=== PATIENT | male | born 2000 | race Caucasian/White ===

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

== ENCOUNTER 2020-05-16 22:07 | Emergency (ER) | payer BC ==
[~2020-05-16] VITALS: Ht 177 cm; Wt 63.0 kg
[~2020-05-16 22:07] MED LIST: ACHD5005 PO
[2020-05-16] MEDS ORDERED: morphine INJ 10 MG/ML 1ML (SYR OR VIAL) IVP STA (22:14)
[2020-05-16 22:33] LABS: BASOPHILS # (AUTO) 0.1 10^3/uL (0.0-0.1); BASOPHILS % (AUTO) 1 % (0-10); EOSINOPHILS # (AUTO) 0.2 10^3/uL (0.0-0.3); EOSINOPHILS % (AUTO) 2 % (0-10); HEMATOCRIT 41 % (40-54); HEMOGLOBIN 13.9 g/dL (13.3-17.7); LYMPHOCYTES % (AUTO) 53 % (12-44); MEAN CORPUSCULAR HEMOGLOBIN 31 pg (25-34); MEAN CORPUSCULAR HGB CONC 34 g/dL (32-36); MEAN CORPUSCULAR VOLUME 92 fL (80-99); MEAN PLATELET VOLUME 11.9 fL (9.0-12.2); MONOCYTES # (AUTO) 0.7 10^3/uL (0.0-1.0); MONOCYTES % (AUTO) 7 % (0-12); NEUTROPHILS # (AUTO) 3.4 10^3/uL (1.8-7.8); NEUTROPHILS % (AUTO) 37 % (42-75); PLATELET COUNT 167 10^3/uL (130-400); WHITE BLOOD COUNT 9.4 10^3/uL (4.3-11.0)
[2020-05-16 22:38] LABS: ALBUMIN 4.6 GM/DL (3.2-4.5); CHLORIDE 104 MMOL/L (98-107); POTASSIUM 3.4 MMOL/L (3.6-5.0); SODIUM 138 MMOL/L (135-145)
[2020-05-16 22:41] LABS: GLUCOSE 115 MG/DL (70-105); TOTAL PROTEIN 7.3 GM/DL (6.4-8.2)
[2020-05-16 22:42] LABS: CARBON DIOXIDE 17 MMOL/L (21-32)
[2020-05-16 22:43] LABS: BILIRUBIN,TOTAL 0.7 MG/DL (0.1-1.0)
[2020-05-16 22:44] LABS: ALKALINE PHOSPHATASE 98 U/L (40-136)
[2020-05-16 22:45] LABS: CREATININE SERUM 1.08 MG/DL (0.60-1.30); GFR ESTIMATED > 60
[2020-05-16 22:46] LABS: BUN/CREATININE RATIO 12
[2020-05-16 22:47] LABS: ALANINE AMINOTRANSFERASE 13 U/L (0-55)
[2020-05-16 22:48] LABS: MAGNESIUM 2.2 MG/DL (1.6-2.4)
[2020-05-16 23:08] LABS: TSH (THYROID ANALYZER) 1.88 UIU/ML (0.35-4.94)
[2020-05-16] MEDS ORDERED: fentaNYL INJECTION 100 MCG/2 ML AMP IVP ONE (23:30)
[2020-05-16] MEDS ORDERED: ETOMIDATE IV SOLN 20 MG/10 ML VIAL IV ONE (23:30)
[2020-05-17] MEDS ORDERED: NS IV 1000 ML 1,000 ML ONE (01:18)
--- NOTE | 2020-05-17 01:33 | ED Syncope ---
General Chief Complaint: Trauma EMS/Air Arrival Activat Stated Complaint: SEIZURE/POSSIBLE DISLOCATED SHOULDER Nursing Triage Note: Patient presented to the ER via EMS secondary to what patients co workers felt was a seizure. Upon EMS arrival staff advised that the patient was standing by one of the machines when he fell against the machine with his left shoulder and then fell to the floor and had what staff believed to be a seizure. The patient states no previous hx of seizures. Source of Information: Patient, EMS, Family Exam Limitations: No Limitations History of Present Illness Date Seen by Provider: May 16, 2020 Time Seen by Provider: 22:15 Initial Comments This 20 -year-old young man presents to the emergency room via EMS after they were called to his place of employment for suspected seizure and shoulder injury. 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 For some reason coworkers thought he had a seizure but there were no convulsions described. Patient has a history of recent left shoulder dislocation 1 to 2 months ago. He now has disfigurement of that left shoulder and appears to have dislocated it again. He denies any history of seizure activity. He denies any drug or alcohol use. It was later revealed by his father that he has been working extremely long hours while going to school. He had not eaten anything all day prior to the event. He reports 1 prior episode of syncope when he was a child. That occurred in the shower. He is alert and oriented now. He denies any other injury. He denies any recent illness. Location Injury Occurred: patients employment Allergies and Home Medications Allergies Coded Allergies: No Known Drug Allergies (Unverified , 12/18/19) Home Medications Hydrocodone/Acetaminophen 1 Each Tablet, 1 EACH PO Q4-6 HOURS PRN for PAIN Prescribed by: BRANDO GALVEZ on 12/18/19 7179 Patient Home Medication List Home Medication List Reviewed: Yes Review of Systems Constitutional: no symptoms reported EENTM: no symptoms reported Respiratory: no symptoms reported Cardiovascular: see HPI Gastrointestinal: no symptoms reported Genitourinary: no symptoms reported Musculoskeletal: see HPI Skin: no symptoms reported Psychiatric/Neurological: See HPI Past Vigykhu-Zbsqbz-Tpsfyj Hx Past Med/Social Hx: Reviewed Nursing Past Med/Soc Hx Patient Social History Alcohol Use: Denies Use Recreational Drug Use: Yes (THC) Type Used: Electronic/Vapor Recent Foreign Travel: No Contact w/Someone Who Travel: No Recent Infectious Disease Expo: No Recent Hopitalizations: No Immunizations Up To Date PED Vaccines UTD: Yes Seasonal Allergies Seasonal Allergies: No Past Medical History Surgeries: No Respiratory: No Cardiac: Yes Syncope (One episode as a child) Neurological: No Genitourinary: No Gastrointestinal: No Musculoskeletal: No Endocrine: No HEENT: No Cancer: No Psychosocial: No Integumentary: No Blood Disorders: No Physical Exam Vital Signs Vital Signs - First Documented Capillary Refill : Less Than 3 Seconds Height, Weight, BMI Height: '" Weight: lbs. oz. kg; 20.00 BMI Method: General Appearance: No Apparent Distress, WD/WN, Thin HEENT: PERRL/EOMI, Normal ENT Inspection Neck: Full Range of Motion, Normal Inspection, Non Tender Cardiovascular: Regular Rate, Rhythm, No Edema, No Murmur Respiratory: Lungs Clear, Normal Breath Sounds, No Accessory Muscle Use, No Respiratory Distress Gastrointestinal: Non Tender, Soft Extremities: Other (Apparent anterior dislocation of the left shoulder with tenderness. Distal exam is unremarkable with normal movement, sensation, and radial pulse) Neurologic/Psychiatric: Alert, Oriented x3, No Motor/Sensory Deficits, Normal Mood/Affect, behavioral modification assistant II-XII Norm as Tested Cranial Nerves: Normal Hearing, Normal Speech, PERRL Motor/Sensory: No Motor Deficit, No Sensory Deficit Skin: Normal Color, Warm/Dry Procedures/Interventions Procedure: closed reduction of left shoulder dislocation Patient Education: Explained Benefits, Explained Risks, Pt. Ack. Understanding Agreement on procedure with pt: Yes Breath Sounds per Auscultation: Clear Heart Sounds per Auscultation: Regular Airway Exam: Mouth opens >2 fingers Sedation Adminstration Time: 00:22 Total Time spent in CS 7 min Patient was treated with fentanyl for pain prior to conscious sedation. After informed consent conscious sedation was provided with etomidate 10 mg IV. Patient was supervised by respiratory therapy during the procedure. The Legg Maneuver was then used to reduce the shoulder without Difficulty or complication. Patient woke a short time later and recovered without complication. Re-examination Time: 00:45 Re-examination Reduce pain and tenderness. 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 Normal radial pulse. Normal sensation. Progress/Results/Core Measures Results/Orders Lab Results Laboratory Tests Test 05/16/20 22:17 Range/Units White Blood Count 9.4 4.3-11.0 10^3/uL Red Blood Count 4.43 4.30-5.52 10^6/uL Hemoglobin 13.9 13.3-17.7 g/dL Hematocrit 41 40-54 % Mean Corpuscular Volume 92 80-99 fL Mean Corpuscular Hemoglobin 31 25-34 pg Mean Corpuscular Hemoglobin Concent 34 32-36 g/dL Red Cell Distribution Width 11.6 10.0-14.5 % Platelet Count 167 130-400 10^3/uL Mean Platelet Volume 11.9 9.0-12.2 fL Immature Granulocyte % (Auto) 0 % Neutrophils (%) (Auto) 37 L 42-75 % Lymphocytes (%) (Auto) 53 H 12-44 % Monocytes (%) (Auto) 7 0-12 % Eosinophils (%) (Auto) 2 0-10 % Basophils (%) (Auto) 1 0-10 % Neutrophils # (Auto) 3.4 1.8-7.8 10^3/uL Lymphocytes # (Auto) 5.0 H 1.0-4.0 10^3/uL Monocytes # (Auto) 0.7 0.0-1.0 10^3/uL Eosinophils # (Auto) 0.2 0.0-0.3 10^3/uL Basophils # (Auto) 0.1 0.0-0.1 10^3/uL Immature Granulocyte # (Auto) 0.0 0.0-0.1 10^3/uL Sodium Level 138 135-145 MMOL/L Potassium Level 3.4 L 3.6-5.0 MMOL/L Chloride Level 104 98-107 MMOL/L Carbon Dioxide Level 17 L 21-32 MMOL/L Anion Gap 17 H 5-14 MMOL/L Blood Urea Nitrogen 13 7-18 MG/DL Creatinine 1.08 0.60-1.30 MG/DL Estimat Glomerular Filtration Rate > 60 BUN/Creatinine Ratio 12 Glucose Level 115 H 70-105 MG/DL Calcium Level 9.0 8.5-10.1 MG/DL Corrected Calcium 8.5-10.1 MG/DL Magnesium Level 2.2 1.6-2.4 MG/DL Total Bilirubin 0.7 0.1-1.0 MG/DL Aspartate Amino Transf (AST/SGOT) 17 5-34 U/L Alanine Aminotransferase (ALT/SGPT) 13 0-55 U/L Alkaline Phosphatase 98 40-136 U/L Troponin I < 0.028 <0.028 NG/ML Total Protein 7.3 6.4-8.2 GM/DL Albumin 4.6 H 3.2-4.5 GM/DL TSH Todd Testing 1.88 0.35-4.94 UIU/ML Serum Alcohol < 10 <10 MG/DL My Orders Orders - ABDOULAYE VEGA MD Morphine Injection (Morphine Injection (05/16/20 22:14) Shoulder, Left, 3 Views (05/16/20 22:22) Alcohol (05/16/20 22:22) Cbc With Automated Diff (05/16/20:22) Comprehensive Metabolic Panel (05/16/20 22:22) Magnesium (05/16/20 22:22) Thyroid Analyzer (05/16/20 22:22) Chest 1 View, Ap/Pa Only (05/16/20 22:22) Ct Head Wo (05/16/20 22:22) Troponin I (05/16/20 22:29) Etomidate Injection (Amidate Injection) (05/16/20 23:30) Fentanyl Injection (Sublimaze Injection (05/16/20 23:30) Shoulder, Left, 2 Views (05/17/20 00:13) Ns Iv 1000 Ml (Sodium Chloride 0.9%) (05/17/20 01:18) Medications Given in ED Vital Signs/I&O 05/16/20 05/16/20 05/17/20 05/17/20 22:28 22:28 00:22 00:22 Temp 35.1 35.1 36.5 Pulse 85 96 63 Resp 14 14 18 B/P (MAP) 123/75 (91) 121/70 (87) 129/78 Pulse Ox 98 98 100 O2 Delivery Room Air Room Air Nasal Cannula Nasal Cannula O2 Flow Rate 2.00 05/17/20 01:57 Pulse 75 Resp 12 B/P (MAP) 130/82 Pulse Ox 100 O2 Delivery Room Air Blood Pressure Mean: 91 Progress Progress Note : Progress Note Work-up for syncope was unremarkable. Patient was treated with fentanyl and morphine for pain. I attempted to reduce the arm with pain control only without sedation using the Legg Maneuver. This was not successful. Conscious sedation with etomidate 10 mg was then used and reduction was easily performed. Arm was placed in a sling. Patient was instructed to follow-up with an orthopedist. I discussed causes of possible syncope with his father and the patient. Patient had worked a long day and not had anything to eat. This probably played a role. I have advised him not to drive or work again until he receives further evaluation. His father is his primary care provider and will discuss these issues with him further. Patient was ultimately discharged into his father's care. Diagnostic Imaging Diagonstic Imaging: Xray Plain Films/CT/US/NM/MRI: chest Comments Chest x-ray viewed by me. Report not yet available. No acute abnormalities appreciated. Diagonstic Imaging: CT Plain Films/CT/US/NM/MRI: head Comments CT head stat rad report reviewed. No acute injuries identified.No masses or other abnormalities appreciated. Diagonstic Imaging: Xray Plain Films/CT/US/NM/MRI: other (Left shoulder) Comments Left shoulder x-ray viewed by me. Report not yet available. There is a left anterior shoulder dislocation without fracture. Hill-Sachs deformity present. Diagonstic Imaging: Xray Plain Films/CT/US/NM/MRI: other (Left shoulder) Comments Postreduction left shoulder x-rays viewed by me. Report not yet available. Reduction was successful. Hill-Sachs deformity again noted. No fractures appreciated. Departure Impression Primary Impression: Syncope and collapse Additional Impression: Recurrent dislocation, left shoulder Disposition: 01 HOME, SELF-CARE Condition: Improved Departure-Patient Inst. Decision time for Depature: 01:31 Referrals: BERNARD ANDERSON DO (PCP/Family) Primary Care Physician Patient Instructions: Shoulder Dislocation, Syncope (Fainting) Add. Discharge Instructions: Follow-up with an orthopedic provider of your choice as soon as possible. In the meantime, keep the left arm in the sling is much as possible. You may adjust the sling straps to provide appropriate support. Icing in 20-minute intervals as well as Tylenol and/or ibuprofen may be helpful in reducing pain. Drink plenty of clear liquids, get plenty of rest, and eat a well-balanced diet. Do not return to driving or work until you discuss your situation further with your primary care provider. Return to the emergency room if you have worsening symptoms or recurrent shoulder dislocation. All discharge instructions reviewed with patient and/or family. Voiced understanding. ABDOULAYE VEGA MD May 17, 2020 01:32
[2020-05-17 01:57] VITALS: BP 130/82
--- NOTE | 2020-05-17 06:26 | Diagnostic Imaging Report ---
INDICATION: Dislocation, post reduction. TECHNIQUE: 2 views of the left shoulder CORRELATION STUDY: 05/16/2020 FINDINGS: There appears to be satisfactory reduction previously noted left shoulder dislocation. Defect in superolateral humeral head is again demonstrated. The visualized soft tissues are unremarkable. IMPRESSION: 1. Satisfactory reduction previously noted left shoulder dislocation. 2. Findings compatible with a Hill-Sachs fracture deformity. Likely nonacute. Dictated by: Dictated on workstation # [id number]
--- NOTE | 2020-05-17 07:01 | Diagnostic Imaging Report ---
PROCEDURE: CT head without contrast. TECHNIQUE: Multiple contiguous axial images were obtained through the brain without the use of intravenous contrast. Auto Exposure Controls were utilized during the CT exam to meet ALARA standards for radiation dose reduction. INDICATION: Seizure with fall CORRELATION: None FINDINGS: Examination mildly compromised by motion artifact. There is no midline shift or mass effect. The ventricles and sulci are unremarkable. No evidence for acute intracranial hemorrhage, abnormal extra-axial fluid collections or cerebral edema is present. The basilar cisterns are unremarkable. The bony calvarium is intact. Probable cysts or polyps bilateral maxillary sinuses. IMPRESSION: Negative appearing noncontrast CT of the head. Initial report was provided by [facility]. Dictated by: Dictated on workstation # [id number]
--- NOTE | 2020-05-17 07:12 | Diagnostic Imaging Report ---
EXAMINATION: Left shoulder radiographs, 3 views. COMPARISON: December 19, 2019. HISTORY: 20-year-old male, left shoulder pain. Seizure. Fall. FINDINGS: The humeral head is anteriorly dislocated. There does appear to be a Hill-Sachs deformity. There is no radiographically apparent fracture of the glenoid. The acromioclavicular joint is normally aligned. There are no acromioclavicular degenerative changes. IMPRESSION: 1. Anterior glenohumeral joint dislocation. 2. Probable Hill-Sachs deformity. Dictated by: Dictated on workstation # [id number]
--- NOTE | 2020-05-17 07:13 | Diagnostic Imaging Report ---
EXAMINATION: Chest radiograph, portable AP view. DATE: 05/16/2020 11:00 PM INDICATION: 20-year-old male, fall, syncope. COMPARISON: None. FINDINGS: There is a left glenohumeral joint dislocation. Heart size and mediastinal contours are unremarkable. There is no identified pneumothorax. There is no large pleural effusion. There is no identified focal airspace consolidation. IMPRESSION: 1. No identified acute cardiopulmonary abnormality. 2. Left glenohumeral joint dislocation. Dictated by: Dictated on workstation # [id number]
== END 2020-05-17 01:58 | disposition home or self-care (01) ==
LOC: EDUNIT# 22:07 → ER 22:09
DX: R55 Syncope and collapse (principal); M24.412 Recurrent dislocation, left shoulder
CPT/HCPCS: 70450; 71045; 73030 ×2; 80053; 83735; 84443; 84484; 85025; 93041; 99285; A4565; G0480; 36415; 80320; 93005

== ENCOUNTER 2020-08-15 22:23 | Emergency (ER) | payer BC ==
[~2020-08-15] VITALS: Ht 177.8 cm; Wt 63.5 kg
[2020-08-15] MEDS ORDERED: KETOROLAC 30 MG/ML VIAL IVP STA (22:45)
[2020-08-15] MEDS ORDERED: MIDAZOLAM 5 MG/5 ML (VERSED) VIAL ONE ×2 (22:55→23:18)
[2020-08-15] MEDS ORDERED: fentaNYL INJECTION 100 MCG/2 ML AMP IVP ONE (23:00)
[2020-08-15] MEDS ORDERED: LACTATED RINGERS 1,000 ML IV ONE (23:00)
[2020-08-15] MEDS: MIDAZOLAM 10 MG/2 ML (VERSED) VIAL IVP PRN ×3 (23:16→23:24)
[2020-08-15] MEDS ORDERED: KETAMINE/NaCl 50 MG/5 ML SYRINGE (ED ONLY) ONE (23:23)
--- NOTE | 2020-08-15 23:41 | ED Upper Extremity ---
General Chief Complaint: Conscious Sedation Stated Complaint: L SHOULDER INJ / POSS DISLOCATION Nursing Triage Note: LEFT SHOUDLER PAIN/POSSIBLE DISLOCATION. DENIES INJURY. Nursing Sepsis Screen: No Definite Risk Source: patient History of Present Illness Date Seen by Provider: Aug 15, 2020 Time Seen by Provider: 22:34 Initial Comments PT ARRIVES VIA POV FROM HOME--ROOM MATE DROVE HIM HERE PT STATES HE WAS ASLEEP AND WOKE UP WITH LEFT SHOULDER PAIN AND SUSPECTED DISLOCATION STATES HE WENT TO SLEEP ON HIS LEFT SIDE WITH HIS LEFT ARM UNDER THE PILLOW NO PARESTHESIAS OR MOTOR DEFICITS THIS IS 3RD TIME IT HAS HAPPENED. FIRST TIME WAS 12/18/19--EXACT SAME SCENARIO. SECOND TIME WAS IN MAY AND IT OCCURRED AT WORK WITH SYNCOPAL EPISODE. STATES HE SAW A SPECIALIST AFTER ER VISITS AND WAS TOLD THAT IT HE CONTINUED TO HAVE THIS PROBLEM, HE MAY NEED SURGERY. PT'S FATHER IS PHYSICIAN IN [place], [place] Allergies and Home Medications Allergies Coded Allergies: No Known Drug Allergies (Unverified , 12/18/19) Home Medications Hydrocodone/Acetaminophen 1 Each Tablet, 1 EACH PO Q4-6 HOURS PRN for PAIN Prescribed by: BRANDO GALVEZ on 12/18/19 2337 Hydrocodone/Acetaminophen 1 Each Tablet, 1 EACH PO Q4-6 HOURS PRN for PAIN Prescribed by: BRANDO GALVEZ on 08/15/20 2344 Patient Home Medication List Home Medication List Reviewed: Yes Review of Systems Constitutional: no symptoms reported Musculoskeletal: see HPI Skin: no symptoms reported Psychiatric/Neurological: No Symptoms Reported Past Krtbmww-Qctkcr-Msuuho Hx Past Med/Social Hx: Reviewed and Corrections made Patient Social History Alcohol Use: Denies Use Drug of Choice: CANNIBUS Smoking Status: Current Someday Smoker Type Used: Electronic/Vapor Recent Infectious Disease Expo: No Recent Hopitalizations: No Immunizations Up To Date Tetanus Booster (TDap): Unknown PED Vaccines UTD: Yes Seasonal Allergies Seasonal Allergies: No Past Medical History Surgeries: No Respiratory: No Cardiac: Yes Syncope Neurological: No Genitourinary: No Gastrointestinal: No Musculoskeletal: Yes (LEFT SHOULDER DISLOCATIONS) Endocrine: No HEENT: No Cancer: No Psychosocial: No Integumentary: No Blood Disorders: No Physical Exam Vital Signs Vital Signs - First Documented 08/15/20 22:29 Temp 36.6 Pulse 78 Resp 16 B/P (MAP) 127/67 (87) Pulse Ox 98 O2 Delivery Room Air Capillary Refill : Less Than 3 Seconds Height, Weight, BMI Height: '" Weight: lbs. oz. kg; 20.00 BMI Method: General Appearance: WD/WN, no apparent distress HEENT: other (MINOR ABRASION TO RIGHT BUDDHIST AREA) Neck: non-tender, full range of motion Cardiovascular: regular rate, rhythm, no murmur Respiratory: chest non-tender, normal breath sounds Gastrointestinal: non tender, soft Back: normal inspection Shoulder: bone tenderness, deformity (AC DROP OFF AND ANTERIOR FULLNESS. ), limited ROM, pain, soft tissue tenderness Elbow/Forearm: normal inspection Wrist: Yes normal inspection Hand: normal inspection Neurologic/Tendon: normal sensation, normal motor functions, normal tendon functions Neurologic/Psychiatric: life consultant II-XII nml as tested, no motor/sensory deficits, alert, normal mood/affect, oriented x 3 Skin: normal color, warm/dry Procedures/Interventions Procedure: SHOULDER REDUCTION Patient Education: Explained Benefits, Explained Risks, Pt. Ack. Understanding Agreement on procedure with pt: Yes Breath Sounds per Auscultation: Clear Heart Sounds per Auscultation: Regular Airway Exam: Mouth opens >2 fingers Sedation Adminstration Time: 0022 Re-examination Time: 0045 Splinting and Joint Reduction : Pre-Proc Neuro Vasc Exam: normal Post-Proc Neuro Vasc Exam: normal Joint Reduction Site: shoulder (L) Pre-Procedure NV Exam: Yes post joint reduction film: joint reduced Immobilizers: Medium Shoulder Progress/Results/Core Measures Results/Orders My Orders Orders - BRANDO GALVEZ DO Shoulder, Left, 3 Views (08/15/20 22:37) Ed Iv/Invasive Line Start (08/15/20 22:45) Ketorolac Injection (Toradol Injection) (08/15/20 22:45) Shoulder, Left, 1 View (08/15/20 ) Midazolam Injection (Versed Injection) (08/15/20 23:00) Fentanyl Injection (Sublimaze Injection (08/15/20 23:00) Ed Iv/Invasive Line Start (08/15/20 22:56) Lactated Ringers (Lr 1000 Ml Iv Solution (08/15/20 23:00) Midazolam Injection (Versed Injection) (08/15/20 22:55) Midazolam Injection (Versed Injection) (08/15/20 23:18) Ketamine Syringe (Ed Only) (Ketamine Syr (08/15/20 23:23) Medications Given in ED Current Medications Medications Dose Ordered Sig/Mega Route Start Time Stop Time Status Last Admin Dose Admin Fentanyl Citrate 50 mcg PRN ONCE IVP 08/15/20 23:00 08/15/20 23:01 DC 08/15/20 23:06 50 MCG Ketamine HCl 50 mg STK-MED ONCE .ROUTE 08/15/20 23:23 08/15/20 23:29 DC 08/15/20 23:29 50 MG Lactated Ringer's 1,000 ml @ 0 mls/hr Q0M ONCE IV 08/15/20 23:00 08/15/20 23:01 DC 08/15/20 23:07 0 MLS/HR Midazolam HCl PRN PRN IVP 08/15/20 23:00 08/15/20 23:24 2 MG Midazolam HCl 5 mg STK-MED ONCE .ROUTE 08/15/20 22:55 08/15/20 23:01 DC 08/15/20 23:11 4 MG Vital Signs/I&O 08/15/20 08/15/20 08/15/20 08/15/20 22:29 23:00 23:00 23:05 Temp 36.6 36.6 Pulse 78 68 68 Resp 16 16 14 B/P (MAP) 127/67 (87) 123/77 116/73 Pulse Ox 98 98 100 O2 Delivery Room Air Nasal Cannula Nasal Cannula Nasal Cannula O2 Flow Rate 2.00 2.00 2.00 08/15/20 08/15/20 08/15/20 08/15/20 23:07 23:10 23:15 23:20 Temp 36.6 Pulse 68 80 80 Resp 12 10 12 B/P (MAP) 118/73 130/112 123/73 Pulse Ox 100 98 99 O2 Delivery Nasal Cannula Nasal Cannula Nasal Cannula O2 Flow Rate 2.00 2.00 2.00 08/15/20 08/15/20 08/15/20 08/15/20 23:25 23:30 23:35 23:40 Pulse 69 81 86 63 Resp 10 10 10 11 B/P (MAP) 115/70 127/87 140/97 134/88 Pulse Ox 98 100 100 100 O2 Delivery Nasal Cannula Nasal Cannula Nasal Cannula Nasal Cannula O2 Flow Rate 2.00 2.00 2.00 2.00 08/15/20 08/15/20 08/15/20 08/16/20 23:45 23:51 23:55 00:00 Pulse 81 71 70 72 Resp 11 12 11 B/P (MAP) 118/77 117/67 106/62 104/62 Pulse Ox 100 100 100 100 O2 Delivery Nasal Cannula Nasal Cannula Nasal Cannula Nasal Cannula O2 Flow Rate 2.00 2.00 2.00 2.00 08/16/20 08/16/20 08/16/20 08/16/20 00:05 00:10 00:15 00:20 Pulse 71 70 71 70 Resp 11 11 11 11 B/P (MAP) 105/61 108/64 111/72 114/68 Pulse Ox 100 100 100 100 O2 Delivery Nasal Cannula Nasal Cannula Nasal Cannula Nasal Cannula O2 Flow Rate 2.00 2.00 2.00 2.00 08/16/20 08/16/20 08/16/20 00:25 00:30 00:35 Pulse 71 70 67 Resp 12 16 16 B/P (MAP) 116/65 127/87 115/71 Pulse Ox 100 100 100 O2 Delivery Nasal Cannula Nasal Cannula Room Air O2 Flow Rate 2.00 2.00 08/16/20 00:00 Intake Total 1000 ml Balance 1000 ml Blood Pressure Mean: 87 Progress Progress Note : Progress Note NO DETERIORATION IN PT'S CONDITION DURING ER STAY. Diagnostic Imaging Comments XRAYS LEFT SHOULDER--ANTERIOR DISLOCATION, PENDING RADIOLOGIST REVIEW POST REDUCTION XRAYS--ADEQUATE REDUCTION, NO FRACTURE, PENDING RADIOLOGIST REVIEW Reviewed: Reviewed by Me Departure Communication (Admissions) [id number]--SPOKE WITH PT'S FATHER, AND UPDATED HIM ON PT'S CONDITION. HE REPORTS THAT PT SAW ORTHOPEDIC SURGEON IN [place], DR. ALEXIS, AND ALSO HAD PHYSICAL THERAPY WITH [facility]. HE WILL HAVE PT FOLLOW UP WITH DR. ALEXIS AGAIN. DISCUSSED ABRASION TO RIGHT BUDDHIST, HE DOES NOT FEEL THAT CT OR OTHER WORK UP IS WARRANTED AT THIS TIME, AND HE WILL FOLLOW UP ON THIS. Impression Primary Impression: Recurrent dislocation, left shoulder Disposition: HOME, SELF-CARE Condition: Improved Departure-Patient Inst. Referrals: BERNARD ANDERSON DO (PCP/Family) Primary Care Physician Patient Instructions: How to Use a Shoulder Sling ED, Moderate Sedation in Adults (DC), Moderate Sedation in Children (DC), Shoulder Dislocation (DC) Add. Discharge Instructions: WEAR SHOULDER IMMOBILIZER AT ALL TIMES ICE TO AREA AT 20 MINUTE INTERVALS FOLLOW UP WITH ORTHOPEDIC SURGEON NEXT WEEK FOR FURTHER CARE Scripts Hydrocodone/Acetaminophen (Hydrocodone-Acetamin 5-325 mg) 1 Each Tablet 1 EACH PO Q4-6 HOURS PRN for PAIN, #20 TAB Prov: BRANDO GALVEZ DO 08/15/20 BRANDO GALVEZ DO Aug 15, 2020 23:41
[2020-08-15] MEDS ORDERED: ACHD5005 PO (23:44)
[2020-08-16 00:35] VITALS: BP 115/71
--- NOTE | 2020-08-16 06:29 | Diagnostic Imaging Report ---
INDICATION: Shoulder injury COMPARISON: 05/17/20 FINDINGS: 3 views of the left shoulder demonstrate anterior inferior dislocation. There is an age-indeterminate Hill-Sachs fracture of the humeral head. No additional fracture deformity seen. IMPRESSION: Shoulder dislocation. Dictated by: Dictated on workstation # [id number]
--- NOTE | 2020-08-16 06:58 | Diagnostic Imaging Report ---
INDICATION: Shoulder dislocation. Comparison made with prior examination of 10:48 PM on the same day. FINDINGS: There has been closed reduction of the left shoulder dislocation. There does appear to be a Hill-Sachs deformity on the humeral head. AC joints unremarkable. Left lung is clear. Soft tissues are unremarkable IMPRESSION: Closed reduction of the left shoulder dislocation with Hill-Sachs fracture of the humeral head. Dictated by: Dictated on workstation # [id number]
== END 2020-08-16 00:43 | disposition home or self-care (01) ==
LOC: EDUNIT# 22:23 → ER 22:24
DX: S00.81XA Abrasion of other part of head, initial encounter (principal); M24.412 Recurrent dislocation, left shoulder; F17.290 Nicotine dependence, other tobacco product, uncomplicated; X58.XXXA Exposure to other specified factors, initial encounter
CPT/HCPCS: 73020; 73030; 93041

== ENCOUNTER 2020-08-16 08:36 | Emergency (ER) | payer BC ==
[~2020-08-16] VITALS: Ht 177.8 cm; Wt 61.2 kg
--- NOTE | 2020-08-16 08:41 | ED Upper Extremity ---
General Stated Complaint: L SHOULDER DISLOCATED Exam Limitations: no limitations History of Present Illness Date Seen by Provider: Aug 16, 2020 Time Seen by Provider: 08:41 Initial Comments 20-year-old male presents with dislocated left shoulder. Patient was seen last night for similar complaint. Reports that he was vomiting this morning that he take off his immobilizer when he went help himself up, he used his left arm to help lift himself up in the shoulder redislocated. Patient already has orthope dic consultation with Dr. Wahl at [place]. Patient denies any other injury. Allergies and Home Medications Allergies Coded Allergies: No Known Drug Allergies (Unverified , 12/18/19) Home Medications Hydrocodone/Acetaminophen 1 Each Tablet, 1 EACH PO Q4-6 HOURS PRN for PAIN Prescribed by: BRANDO GALVEZ on 12/18/19 2337 Hydrocodone/Acetaminophen 1 Each Tablet, 1 EACH PO Q4-6 HOURS PRN for PAIN Prescribed by: BRANDO GALVEZ on 08/15/20 2344 Patient Home Medication List Home Medication List Reviewed: Yes Review of Systems Constitutional: chills, fever Respiratory: no symptoms reported Cardiovascular: no symptoms reported Gastrointestinal: no symptoms reported Genitourinary: no symptoms reported Musculoskeletal: see HPI Skin: no symptoms reported Psychiatric/Neurological: No Symptoms Reported Past Pwvsjht-Gddvda-Ngispt Hx Patient Social History Drug of Choice: CANNIBUS Type Used: Electronic/Vapor Recent Hopitalizations: No Immunizations Up To Date Tetanus Booster (TDap): Unknown PED Vaccines UTD: Yes Seasonal Allergies Seasonal Allergies: No Past Medical History Surgeries: No Respiratory: No Cardiac: Yes Syncope Neurological: No Genitourinary: No Gastrointestinal: No Musculoskeletal: Yes (LEFT SHOULDER DISLOCATIONS) Endocrine: No HEENT: No Cancer: No Psychosocial: No Integumentary: No Blood Disorders: No Physical Exam Vital Signs Vital Signs - First Documented 08/16/20 08:42 Pulse 79 Resp 18 B/P (MAP) 131/99 (110) Pulse Ox 99 O2 Delivery Room Air Capillary Refill : Height, Weight, BMI Height: '" Weight: lbs. oz. kg; 20.00 BMI Method: General Appearance: moderate distress HEENT: PERRL/EOMI Neck: full range of motion, supple Cardiovascular: normal peripheral pulses, regular rate, rhythm Respiratory: chest non-tender, lungs clear Gastrointestinal: non tender Shoulder: deformity (Obvious dislocation) Elbow/Forearm: normal inspection, non-tender Wrist: Yes non-tender Hand: non-tender, no evidence of injury Neurologic/Psychiatric: alert, normal mood/affect, oriented x 3 Skin: normal color, warm/dry Procedures/Interventions Patient Education: Explained Benefits, Explained Risks, Pt. Ack. Understanding Breath Sounds per Auscultation: Clear Heart Sounds per Auscultation: Regular Airway Exam: Mouth opens >2 fingers Sedation Adminstration Time: 21 Re-examination Time: 44 Re-examination Patient with no acute issues, waking up appropriate Splinting and Joint Reduction : Pre-Proc Neuro Vasc Exam: normal Post-Proc Neuro Vasc Exam: normal Joint Reduction Site: shoulder (L) Pre-Procedure NV Exam: Yes post joint reduction film: joint reduced Immobilizers: Medium Shoulder Progress/Results/Core Measures Results/Orders My Orders Orders - ROCÍO MEDINA DO Ondansetron Injection (Zofran Injectio (08/16/20 09:00) Ed Iv/Invasive Line Start (08/16/20 08:53) Conscious Sedation (08/16/20 08:53) Rt Request For Service (08/16/20 08:53) Ketamine Injection (Ketalar Injection) (08/16/20 09:00) Monitor-Rhythm Ecg Trace Only (08/16/20 08:53) End Tidal Co2 (08/16/20 08:53) Vital Signs-Conscious Sedation (08/16/20 08:53) Shoulder, Left, 3 Views (08/16/20 08:58) Shoulder, Left, 1 View (08/16/20 09:43) Lactated Ringers (Lr 1000 Ml Iv Solution (08/16/20 09:47) Medications Given in ED Vital Signs/I&O Progress Progress Note : Progress Note Patient shoulder reduced with no difficulty. Patient was placed in shoulder immobilizer prior to discharge. Patient has appointment already scheduled with his orthopedic surgeon 3 days from now. Patient stable and discharged Diagnostic Imaging Diagonstic Imaging: Xray Comments [facility]. [place], [place] NAME: CHANCELLOR Harris ANDERSON MED REC#: [id number] PT STATUS: REG ER : 2000 PHYSICIAN: ROCÍO MEDINA DO ADMIT DATE: 08/16/20/ER Signed Date of Exam:08/16/20 SHOULDER, LEFT, 3 VIEWS INDICATION: Left shoulder pain AP and oblique and transscapular views of the left shoulder are obtained at 9:23 a.m. and compared to yesterday. There is anterior subcoracoid dislocation of the right glenohumeral joint. There is no associated fracture. AC joint appears unremarkable. IMPRESSION: Anterior or subcoracoid dislocation of left glenohumeral joint. Diagonstic Imaging: Xray Comments [facility]. [place], [place] NAME: CHANCELLOR [facility] REC#: [id number] PT STATUS: REG ER : 2000 PHYSICIAN: ROCÍO MEDINA DO ADMIT DATE: 08/16/20/ER Draft Date of Exam:08/16/20 SHOULDER, LEFT, 1 VIEW INDICATION: Left shoulder dislocation, post reduction Single AP view of the left shoulder obtained 9:47 a.m. as compared to 9:24 a.m. the same day. The previous dislocation of the left glenohumeral joint has been reduced. There is a Hill-Sachs deformity of the humeral head again noted. IMPRESSION: Reduction of previous dislocation of left glenohumeral joint. A Hill-Sachs deformity of the proximal humerus is noted. Reviewed: Reviewed by Me, Reviewed/Discussed Departure Impression Primary Impression: Recurrent dislocation, left shoulder Disposition: 01 HOME, SELF-CARE Condition: Stable Departure-Patient Inst. Referrals: BERNARD ANDERSON DO (PCP/Family) Primary Care Physician Patient Instructions: Moderate Sedation in Adults (DC), Moderate Sedation in Children (DC), Shoulder Dislocation (DC) Add. Discharge Instructions: Please keep sling on until further evaluated by ROCÍO Manrique DO Aug 16, 2020 08:41
[2020-08-16] MEDS ORDERED: KETAMINE HCL 100 MG/ML 5 ML VIAL IV ONE (09:00)
[2020-08-16] MEDS ORDERED: ONDANSETRON 4 MG/2 ML (SDV) Z0FRAN IVP ONE (09:00)
--- NOTE | 2020-08-16 09:36 | Diagnostic Imaging Report ---
INDICATION: Left shoulder pain AP and oblique and transscapular views of the left shoulder are obtained at 9:23 a.m. and compared to yesterday. There is anterior subcoracoid dislocation of the right glenohumeral joint. There is no associated fracture. AC joint appears unremarkable. IMPRESSION: Anterior or subcoracoid dislocation of left glenohumeral joint. Dictated by: Dictated on workstation # [id number]
[2020-08-16] MEDS ORDERED: LACTATED RINGERS 1,000 ML IV STA (09:47)
--- NOTE | 2020-08-16 10:14 | Diagnostic Imaging Report ---
INDICATION: Left shoulder dislocation, post reduction Single AP view of the left shoulder obtained 9:47 a.m. as compared to 9:24 a.m. the same day. The previous dislocation of the left glenohumeral joint has been reduced. There is a Hill-Sachs deformity of the humeral head again noted. IMPRESSION: Reduction of previous dislocation of left glenohumeral joint. A Hill-Sachs deformity of the proximal humerus is noted. Dictated by: Dictated on workstation # [id number]
[2020-08-16 10:30] VITALS: BP 115/74
== END 2020-08-16 10:30 | disposition home or self-care (01) ==
LOC: EDUNIT# 08:36 → ER 08:38
DX: M24.412 Recurrent dislocation, left shoulder (principal)
CPT/HCPCS: 73020; 73030; 93041; 99285; L3650